=== PATIENT | female | born 1940 | race Asian ===

== ENCOUNTER 2017-06-06 20:39 | Emergency (ER) | payer MEDICARE, OTHER ==
[~2017-06-06] VITALS: Ht 165.1 cm; Wt 75.7 kg
[~2017-06-06 20:39] MED LIST: NOR10 PO
[2017-06-06 20:55] VITALS: BP_SYST 154
[2017-06-06] MEDS ORDERED: NACL 0.9% 1,000 ML IV ONE (21:34)
[2017-06-06] MEDS ORDERED: ASPIRIN 325 MG TABLET PO ONE (21:45)
[2017-06-06] MEDS ORDERED: ONDANSETRON HCL 4 MG/2 ML VIAL IVP ONE (21:45)
[2017-06-06 21:54] LABS: BASOPHILS % (AUTO) 0.2 % (0.0-2.0); EOSINOPHILS % (AUTO) 0.6 % (0.0-4.0); HEMOGLOBIN 12.1 g/dL (12.0-16.0); LYMPHOCYTES # (AUTO) 1.1 K/uL (1.0-5.5); LYMPHOCYTES % (AUTO) 14.7 % (20.5-51.5); MEAN CORPUSCULAR HEMOGLOBIN 31 pg (27-31); MEAN CORPUSCULAR HGB CONC 33 % (32-36); MEAN CORPUSCULAR VOLUME 95 fL (79.0-98.0); MONOCYTES # (AUTO) 0.5 K/uL (0.0-1.0); MONOCYTES % (AUTO) 5.9 % (1.7-9.3); NEUTROPHILS % (AUTO) 78.6 % (40.0-70.0); PLATELET COUNT (AUTO) 182 K/uL (130-430); RED BLOOD CELL COUNT(AUTO) 3.89 MIL/uL (4.2-6.2); RED CELL DISTRIBUTION WIDTH 12.9 % (9.0-15.0); WHITE BLOOD COUNT (AUTO) 7.6 K/uL (4.8-10.8)
[2017-06-06 22:12] LABS: ANION GAP 8 (5-15); CALCIUM 9.3 mg/dL (8.4-11.0); CHLORIDE 103 mmol/L (98-107); CREATININE 0.84 mg/dL (0.55-1.30); GLUCOSE 139 mg/dL (70-99); POTASSIUM 3.8 mmol/L (3.5-5.1); SODIUM SERUM 139 mmol/L (136-145); UREA NITROGEN, BLOOD 14 mg/dL (8-21)
[2017-06-06 22:16] LABS: ALANINE AMINOTRANSFERASE 23 U/L (12-78); AMYLASE 56 U/L (0-100); ASPARTATE AMINOTRANSFERASE 21 U/L (10-37); LIPASE 175 U/L (73-393); PHOSPHORUS 3.9 mg/dL (2.7-4.5); TOTAL BILIRUBIN 0.9 mg/dL (0.0-1.0)
[2017-06-06 22:17] LABS: BILIRUBIN,URINE NEGATIVE (NEGATIVE); BLOOD, URINE 2+ (NEGATIVE); CLARITY/URINE CLEAR (CLEAR); COLOR,URINE YELLOW (YELLOW); GLUCOSE,URINE NEGATIVE (NEGATIVE); KETONES,URINE NEGATIVE (NEGATIVE); LEUKOCYTE ESTERASE ,URINE NEGATIVE (NEGATIVE); NITRITE, URINE NEGATIVE (NEGATIVE); PROTEIN URINE 1+ (NEGATIVE); UROBILINOGEN,URINE 0.2 (0.2-1.0)
[2017-06-06 22:20] LABS: INR 0.9 (0.8-1.2)
[2017-06-06 22:34] LABS: BACTERIA,URINE FEW /HPF (None Seen); MUCUS,URINE 1+ /LPF (None Seen)
[2017-06-06] MEDS ORDERED: ACETAMINOPHEN 500 MG TABLET PO ONE (23:00)
[2017-06-07 00:42] VITALS: BP_SYST 150
== END 2017-06-07 00:42 | disposition home or self-care (01) ==
LOC: SED 20:39
DX: K29.70 Gastritis, unspecified, without bleeding (principal); R31.9 Hematuria, unspecified; I10 Essential (primary) hypertension; Z96.653 Presence of artificial knee joint, bilateral; Z88.1 Allergy status to other antibiotic agents; Z88.2 Allergy status to sulfonamides
CPT/HCPCS: 36415; 74176; 80053; 81000; 82150; 82550; 83690; 83735; 84100; 84484; 85025; 85610; 85730; 93005; 96361; 96374; 99285; J2405; J7030

== ENCOUNTER 2023-04-12 02:25 | Emergency (ER) | payer OTHER ==
[~2023-04-12] VITALS: Ht 167.6 cm; Wt 81.6 kg
--- NOTE | 2023-04-12 02:32 | NUR ---
CALLED OUT PATIENT'S NAME - PT IN THE RESTROOM AT THIS TIME.
[2023-04-12 02:39] VITALS: BP_SYST 191; PULSE 82; RESP 18; TEMP 98.4; O2SAT 98
--- NOTE | 2023-04-12 03:00 | NUR ---
Patient placed in ER bed 5 for evaluation. Bed in lowest position with side rails up. Instructed patient to notify ED staff for any changes in condition or worsening of symptoms. Patient verbalized understanding.
--- NOTE | 2023-04-12 03:17 | NUR ---
daughter at the bedside
[2023-04-12] MEDS ORDERED: ACETAMINOPHEN 325 MG TABLET PO ONE (03:45)
[2023-04-12 04:15] VITALS: BP_SYST 157; PULSE 70; RESP 18; TEMP 98.4; O2SAT 98
== END 2023-04-12 04:15 | disposition home or self-care (01) ==
LOC: SED 02:25
DX: I10 Essential (primary) hypertension (principal); R51.9 Headache, unspecified; Z88.2 Allergy status to sulfonamides; Z85.89 Personal history of malignant neoplasm of other organs and systems; Z79.899 Other long term (current) drug therapy
CPT/HCPCS: 99282

== ENCOUNTER 2023-10-21 12:44 | Emergency (ER) | payer OTHER ==
[~2023-10-21] VITALS: Ht 157.5 cm; Wt 77.1 kg
[2023-10-21 12:45] VITALS: BP_SYST 154; PULSE 62; RESP 18; TEMP 98.3; O2SAT 98
[2023-10-21] MEDS ORDERED: HYDR-3917 PO (14:00)
[2023-10-21] MEDS ORDERED: HYDROcodone/ACETAMIN 5-325 MG TAB (NORCO/ VICODIN) PO ONE (14:15)
[2023-10-21 15:47] VITALS: BP_SYST 154; PULSE 62; RESP 18; TEMP 98.3; O2SAT 98
[2023-10-22] MEDS ORDERED: HYDR-3927 PO (14:54)
== END 2023-10-21 13:06 | disposition home or self-care (01) ==
LOC: SED 12:44
DX: S30.0XXA Contusion of lower back and pelvis, initial encounter (principal); S00.83XA Contusion of other part of head, initial encounter; I10 Essential (primary) hypertension; E78.5 Hyperlipidemia, unspecified; Z88.2 Allergy status to sulfonamides; Z79.899 Other long term (current) drug therapy; W18.40XA Slipping, tripping and stumbling without falling, unspecified, initial encounter; Y93.89 Activity, other specified; Y92.89 Other specified places as the place of occurrence of the external cause; Y99.8 Other external cause status
CPT/HCPCS: 70450-TC; 71250-TC; 76376; 99284